=== PATIENT | male | born 1940 | race Caucasian/White ===

== ENCOUNTER 2016-11-16 06:16 | Observation (INO) | payer MEDICARE ==
[~2016-11-16] VITALS: Ht 170.2 cm; Wt 74.9 kg
[~2016-11-16 06:16] MED LIST: CYAN100017 PO; LEVO.15 PO; LISI20 PO; LUTE20TA PO; MECL25 PO; MELO15; PRAV40 PO
[2016-11-16 06:24] VITALS: BP 202/101; PULSE 65; RESP 16; TEMP 98; O2SAT 96
[2016-11-16] MEDS ORDERED: LEVO-86 PO (06:36)
[2016-11-16] MEDS ORDERED: OMEP20TA PO (07:00)
[2016-11-16] MEDS ORDERED: SODIUM CHLOR 0.9% 1000 ML INJ 1,000 ML IV SCH ×2 (07:07→11:30)
[2016-11-16] MEDS ORDERED: LIDOCAINE VISCOUS 2% SOLN 15 ML UDC PO ONE (07:15)
[2016-11-16] MEDS ORDERED: ALUMINUM/MAGNESIUM/SIMETH 30 ML CUP PO ONE (07:15)
[2016-11-16] MEDS ORDERED: ONDANSETRON HCL 4 MG/2 ML VIAL IVP ONE (07:15)
[2016-11-16] MEDS ORDERED: HYDROmorphone HCL PF 2 MG/ML VIAL IVS ONE (07:15)
[2016-11-16 07:18] LABS: AUTOMATED NEUTROPHIL # 11.4 TH/MM3 (1.8-7.7); BASOPHIL % 0.3 % (0.0-2.0); EOSINOPHIL # 0.1 TH/MM3 (0-0.4); EOSINOPHIL % 0.7 % (0.0-4.0); HEMATOCRIT 49.3 % (39.0-51.0); HEMO FLAGS DIFF FINAL; LYMPH % 15.5 % (9.0-44.0); LYMPHOCYTE # 2.2 TH/MM3 (1.0-4.8); MEAN CELL VOLUME 90.5 FL (80.0-100.0); MEAN CORPUSCULAR HEMOGLOBIN 29.3 PG (27.0-34.0); MEAN CORPUSCULAR HGB CONC 32.4 % (32.0-36.0); MONO % 3.8 % (0.0-8.0); NEUT % 79.7 % (16.0-70.0); PLATELET COUNT 246 TH/MM3 (150-450); RED BLOOD COUNT 5.45 MIL/MM3 (4.50-5.90); RED CELL DISTRIBUTION WIDTH 12.6 % (11.6-17.2); WHITE BLOOD COUNT 14.3 TH/MM3 (4.0-11.0)
[2016-11-16] MEDS: SODIUM CHLORIDE 0.9% FLUSH 10 ML FLUSH IV FLUSH PRN ×2 (07:18→11:13)
[2016-11-16 07:23] VITALS: BP 142/82; PULSE 58; RESP 18; O2SAT 97
--- NOTE | 2016-11-16 07:23 | PD ---
HPI Chief Complaint: Abdominal Pain Time Seen by Provider: 07:03 Travel History International Travel<30 days: No Contact w/Intl Traveler<30days: No Traveled to known affect area: No History of Present Illness HPI 75 yo M c/o RUQ pain and epigastric pain since last night. He wonders if the gallbladder is causing the pain. One episode nonbloody vomiting with waves of nausea all night is reported. No fever. + Diaphoresis. Last oral intake was chicken, kale and sweet potatoes. Pt unsure if he passed flatus overnight; typically he does quite a bit. A similar episode occurred previously however resolved spontaneously after several hours. No diarrhea. PFSH Past Medical History Arthritis: Yes Cancer: No Cardiovascular Problems: Yes High Cholesterol: Yes Cerebrovascular Accident: No Diabetes: No Diminished Hearing: No Endocrine: Yes Gastrointestinal Disorders: No Genitourinary: No Headaches: No Immune Disorder: No Implanted Vascular Access Dvce: No Musculoskeletal: Yes Neurologic: Yes Psychiatric: No Reproductive: No Respiratory: No Migraines: No Seizures: No Thyroid Disease: Yes Tetanus Vaccination: Unknown Influenza Vaccination: Yes Past Surgical History Tonsillectomy: Yes Other Surgery: Yes (tonsilectomy) Social History Alcohol Use: Yes (OCCASIONALLY ) Tobacco Use: No Substance Use: No Allergies-Medications (Allergen,Severity, Reaction): Coded Allergies: Codeine (Verified Allergy, Unknown, RASH, 11/16/16) Reported Meds & Prescriptions Reported Meds & Active Scripts Active Reported Omeprazole 20 Mg Tab 20 Mg PO ONCE Synthroid (Levothyroxine Sodium) 137 Mcg Tab 137 Mcg PO DAILY Review of Systems Except as stated in HPI: all other systems reviewed are Neg General / Constitutional: No: Fever Cardiovascular: Positive: Diaphoresis, No: Chest Pain or Discomfort, Palpitations Respiratory: No: Shortness of Breath Gastrointestinal: Positive: Nausea, Vomiting, Abdominal Pain, No: Diarrhea Physical Exam Narrative GENERAL: 75 yo M, WNWD, mild-moderate distress 2/2 pain SKIN: Warm and dry. HEAD: Atraumatic. Normocephalic. EYES: Pupils equal and round. No scleral icterus. No injection or drainage. ENT: No nasal bleeding or discharge. Mucous membranes pink and moist. NECK: Trachea midline. No JVD. CARDIOVASCULAR: Regular rate and rhythm. RESPIRATORY: No accessory muscle use. Clear to auscultation. Breath sounds equal bilaterally. GASTROINTESTINAL:Abdomen mildly distended, soft. + TTP RUQ. MUSCULOSKELETAL: Extremities without clubbing, cyanosis, or edema. No obvious deformities. NEUROLOGICAL: Awake and alert. No obvious cranial nerve deficits. Motor grossly within normal limits. Five out of 5 muscle strength in the arms and legs. Normal speech. PSYCHIATRIC: Appropriate mood and affect; insight and judgment normal. Data Data Last Documented VS Vital Signs Date Time Temp Pulse Resp B/P Pulse Ox O2 Delivery O2 Flow Rate FiO2 11/16/16 11:11 79 18 165/87 97 Room Air 11/16/16 06:24 98.0 VS reviewed Orders Complete Blood Count With Diff (11/16/16 07:07) Comprehensive Metabolic Panel (11/16/16 07:07) Lipase (11/16/16 07:07) Ct Abd/Pel W Iv Contrast(Rout) (11/16/16 07:07) Iv Access Insert/Monitor (11/16/16 07:07) Ecg Monitoring (11/16/16 07:07) Oximetry (11/16/16 07:07) Hydromorphone Pf Inj (Dilaudid Pf Inj) (11/16/16 07:15) Ondansetron Inj (Zofran Inj) (11/16/16 07:15) Sodium Chlor 0.9% 1000 Ml Inj (Ns 1000 M (11/16/16 07:07) Sodium Chloride 0.9% Flush (Ns Flush) (11/16/16 07:15) Al-Mag Hy-Si 40-40-4 Mg/Ml Liq (Mag-Al P (11/16/16 07:15) Lidocaine 2% Viscous (Xylocaine 2% Visco (11/16/16 07:15) Iohexol 350 Inj (Omnipaque 350 Inj) (11/16/16 08:02) Hydromorphone Pf Inj (Dilaudid Pf Inj) (11/16/16 08:30) Pantoprazole Inj (Protonix Inj) (11/16/16 09:45) Us Abdomen Gallbladder (11/16/16 ) Hydromorphone Pf Inj (Dilaudid Pf Inj) (11/16/16 11:00) Piperacil-Tazo 4.5 Gm Premix (Zosyn 4.5 (11/16/16 11:30) Sodium Chlor 0.9% 1000 Ml Inj (Ns 1000 M (11/16/16 11:30) Admit Order (Ed Use Only) (11/16/16 11:51) Labs Laboratory Tests Test 11/16/16 06:40 White Blood Count 14.3 TH/MM3 Red Blood Count 5.45 MIL/MM3 Hemoglobin 16.0 GM/DL Hematocrit 49.3 % Mean Corpuscular Volume 90.5 FL Mean Corpuscular Hemoglobin 29.3 PG Mean Corpuscular Hemoglobin 32.4 % Concent Red Cell Distribution Width 12.6 % Platelet Count 246 TH/MM3 Mean Platelet Volume 9.3 FL Neutrophils (%) (Auto) 79.7 % Lymphocytes (%) (Auto) 15.5 % Monocytes (%) (Auto) 3.8 % Eosinophils (%) (Auto) 0.7 % Basophils (%) (Auto) 0.3 % Neutrophils # (Auto) 11.4 TH/MM3 Lymphocytes # (Auto) 2.2 TH/MM3 Monocytes # (Auto) 0.5 TH/MM3 Eosinophils # (Auto) 0.1 TH/MM3 Basophils # (Auto) 0.0 TH/MM3 CBC Comment DIFF FINAL Differential Comment Sodium Level 137 MEQ/L Potassium Level 5.3 MEQ/L Chloride Level 101 MEQ/L Carbon Dioxide Level 28.5 MEQ/L Anion Gap 8 MEQ/L Blood Urea Nitrogen 10 MG/DL Creatinine 0.90 MG/DL Estimat Glomerular Filtration 83 ML/MIN Rate Random Glucose 139 MG/DL Calcium Level 9.2 MG/DL Total Bilirubin 1.0 MG/DL Aspartate Amino Transf 47 U/L (AST/SGOT) Alanine Aminotransferase 29 U/L (ALT/SGPT) Alkaline Phosphatase 52 U/L Total Protein 7.5 GM/DL Albumin 3.9 GM/DL Lipase 69 U/L [facility] Medical Decision Making Medical Screen Exam Complete: Yes Emergency Medical Condition: Yes Medical Record Reviewed: Yes Differential Diagnosis Constipation, Gastritis, Acute Cholecystitis, Biliary Colic, Pancreatitis, PRESTON , Hepatitis, Bowel Obstruction, Cystitis, Mesenteric Ischemia, AAA, Appendicitis , Renal Stone/Hydronephrosis, GERD, perforated viscous Narrative Course CBC & BMP Diagram 11/16/16 06:40 LFTs normal Lipase 69 Last Impressions Abdomen/Pelvis CT 11/16/16 0707 Signed Impressions: Service Date/Time: Wednesday, November 16, 2016 07:50 - CONCLUSION: 1. Uncomplicated colonic diverticulosis. 2. Distended gallbladder containing sludge. 3. Enlarged prostate. 4. Bilateral pars defects at L5. 5. Degenerative changes and scoliosis of the thoracolumbar spine. 6. Cardiomegaly. 7. Minimal posterior bibasilar atelectasis. Pérez Roland MD 0745: resting comfortably after gi cocktail and 0.5mg hydromorphone 0820: resting comfortably however reports pain returned, 0.5mg hydromorphone ordered again; results of ct discussed, plan for US discussed, pt agreeable with plan, concern for acute cholecystitis 1100: resting comfortably however reports pain returned, 0.5mg hydromorphone ordered again GB SONO: GB calculi with positive US Tomlin's sign 1120: resting comfortably, + TTP RUQ, call to general surgery placed 1145: d/w general surgery; pt confirms last oral intake was 8pm last night 1155: d/w Dr Carranza of general surgery, who will take pt for cholecystectomy this afternoon. pt notified shortly thereafter and verbalized agreement with plan. Diagnosis Primary Impression: Cholecystitis Admitting Information Admitting Physician Requests: Observation James Baca MD Nov 16, 2016 07:23
[2016-11-16 07:26] LABS: CHLORIDE 101 MEQ/L (98-107); POTASSIUM 5.3 MEQ/L (3.5-5.1); SODIUM (NA) 137 MEQ/L (136-145)
[2016-11-16 07:30] LABS: ANION GAP 8 MEQ/L (5-15); BICARBONATE 28.5 MEQ/L (21.0-32.0); BLOOD UREA NITROGEN 10 MG/DL (7-18)
[2016-11-16 07:33] LABS: ALT (GPT) 29 U/L (12-78); AST (GOT) 47 U/L (15-37); GLOMERULAR FILTRATION RATE 83 ML/MIN (>89)
[2016-11-16 07:36] LABS: ALKALINE PHOSPHATASE 52 U/L (45-117)
[2016-11-16] MEDS ORDERED: IOHEXOL 350 MG/ML 10 ML VIAL (for RAD DIAG) IV ONE (08:02)
[2016-11-16] MEDS ORDERED: HYDROmorphone HCL PF 1 MG/ML VIAL IV PUSH ONE ×2 (08:30→11:00)
[2016-11-16 09:13] VITALS: BP 165/89; PULSE 60; RESP 18; O2SAT 96
--- NOTE | 2016-11-16 09:20 | RADRPT ---
EXAM DATE/TIME: 11/16/2016 07:50 [facility] COMPARISON: No previous studies available for comparison. INDICATIONS : Epigastric pain. IV CONTRAST: 95 cc Omnipaque 350 (iohexol) IV ORAL CONTRAST: No oral contrast ingested. RADIATION DOSE: 11.96 CTDIvol (mGy) MEDICAL HISTORY : None SURGICAL HISTORY : None. ENCOUNTER: Initial ACUITY: 1 day PAIN SCALE: 6/10 LOCATION: upper quadrant TECHNIQUE: Volumetric scanning of the abdomen and pelvis was performed. Using automated exposure control and ad justment of the mA and/or kV according to patient size, radiation dose was kept as low as reasonably achievable to obtain optimal diagnostic quality images. DICOM format image data is available electro nically for review and comparison. FINDINGS: LOWER LUNGS: Minimal posterior bibasilar atelectatic changes are noted. Cardiomegaly is noted. LIVER: Homogeneous density without lesion. There is no dilation of the biliary tree. The gallbladder is dis tended and contains some sludge. If there is clinical concern for cholecystitis, a hepatobiliary scan or gallbladder ultrasound would be more sensitive. SPLEEN: Normal size without lesion. PANCREAS: Within normal limits. KIDNEYS: Normal in size and shape. There is no mass, stone or hydronephrosis. ADRENAL GLANDS: Within normal limits. VASCULAR: There is no aortic aneurysm. BOWEL/MESENTERY: Uncomplicated colonic diverticulosis is noted. No acute diverticulitis is noted. The appendix is norm al. ABDOMINAL WALL: Within normal limits. RETROPERITONEUM: There is no lymphadenopathy. BLADDER: No wall thickening or mass. REPRODUCTIVE: The prostate gland is prominent. The seminal vesicles are also prominent bilaterally. INGUINAL: There is no lymphadenopathy or hernia. MUSCULOSKELETAL: Bilateral pars defects are noted at L5. Degenerative changes and scoliosis of the thoracolumbar spine are noted. CONCLUSION: 1. Uncomplicated colonic diverticulosis. 2. Distended gallbladder containing sludge. 3. Enlarged prostate. 4. Bilateral pars defects at L5. 5. Degenerative changes and scoliosis of the thoracolumbar spine. 6. Cardiomegaly. 7. Minimal posterior bibasilar atelectasis. Pérez Roland MD on November 16, 2016 at 9:09 Board Certified Radiologist. This report was verified electronically.
[2016-11-16] MEDS ORDERED: PANTOPRAZOLE SODIUM 40 MG VIAL IV PUSH ONE (09:45)
[2016-11-16 11:11] VITALS: BP 165/87; PULSE 79; RESP 18; O2SAT 97
--- NOTE | 2016-11-16 11:16 | RADRPT ---
EXAM DATE/TIME: 11/16/2016 10:03 [facility] COMPARISON: CT ABDOMEN & PELVIS W CONTRAST, November 16, 2016, 7:50. INDICATIONS : Right upper quandrant pain. MEDICAL HISTORY : Hypercholesterolemia. Thyroid Disease. HX of head trama. Arthritis. SURGICAL HISTORY : Tonsillectomy. ENCOUNTER: Initial ACUITY: 1 day PAIN SCORE: 8/10 LOCATION: Right upper quadrant MEASUREMENTS: LIVER: 18.6 cm length COMMON DUCT: 6 mm RIGHT KIDNEY: 11.4 x 5.1 x 5.5 cm FINDINGS: LIVER: Normal echotexture without focal lesion or ductal dilatation. COMMON DUCT: No intraluminal mass or stone visualized. GALLBLADDER: Gallbladder is distended and contains multiple dependent echogenic stones. No para cholecystic fluid or mural thickening but the patient did exhibit a positive sonographic Tomlin's sign PANCREAS: The visualized portions are within normal limits. RIGHT KIDNEY: No evidence of hydronephrosis, stone, or mass. CONCLUSION: 1. Cholelithiasis with a positive sonographic Tomlin's sign. 2. Liver is slightly prominent but otherwise sonographically intact. The pancreas and right kidney ar e sonographically normal. Melchor Hernandez MD on November 16, 2016 at 11:11 Board Certified Radiologist. This report was verified electronically.
[2016-11-16] MEDS ORDERED: PIPERACIL-TAZO 4.5 GM PREMIX 100 ML IV ONE (11:30)
[2016-11-16] MEDS ORDERED: PROPOFOL 200 MG/20 ML AMP IV ONE (12:00)
[2016-11-16] MEDS ORDERED: ONDANSETRON HCL 4 MG/2 ML VIAL IV PUSH ONE (12:00)
[2016-11-16] MEDS ORDERED: BUPIVACAINE/EPINEPHRINE 0.25% PF 30 ML VIAL ONE (12:44)
[2016-11-16 13:35] VITALS: BP 155/79
[2016-11-16] MEDS ORDERED: INSULIN HUMAN REGULAR 1,000 UNITS/10 ML VIAL SQ PRN (13:45)
[2016-11-16] MEDS ORDERED: METOPROLOL TARTRATE 25 MG TAB PO PRN (13:45)
[2016-11-16] MEDS ORDERED: POVIDONE IODINE 5% (ANTISEPSIS KIT) 4 APPLICATIONS EACH NARE PRN (13:45)
[2016-11-16] MEDS ORDERED: LACTATED RINGER'S 1000 ML IV PRN (13:45)
[2016-11-16] MEDS ORDERED: SODIUM CHLORID 0.9% 500 ML IV PRN (13:45)
[2016-11-16] MEDS ORDERED: CHLORHEXIDINE GLUCONATE 2 % 1 PACK (2 CLOTHS) TOPICAL PRN (13:45)
[2016-11-16] MEDS ORDERED: MIDAZOLAM HCL 2 MG/2 ML VIAL ONE (13:53)
--- NOTE | 2016-11-16 14:09 | MH ---
cc: MIGUEL ÁNGEL SARABIA MD DATE OF ADMISSION: 11/16/2016 CHIEF COMPLAINT Abdominal pain. HISTORY OF PRESENT ILLNESS This is a 75-year-old male who presented to the emergency department this morning with complaints of abdominal pain. He states that he developed severe epigastric abdominal pain beginning about 8:00 p.m. last night after a dinner of chicken, kale and sweet potato. This was associated with one episode of non-bloody emesis. The pain persisted throughout the night and therefore he presented to the emergency department. In the last few hours the pain has progressed more from the epigastrium to the right upper abdomen and even towards the right flank. He underwent an evaluation in the emergency department and was noted to have a positive Tomlin's sign, leukocytosis of 14,000, and a gallbladder ultrasound revealing cholelithiasis and a positive sonographic Tomlin's sign. CT of the abdomen and pelvis showed a distended gallbladder with sludge. The patient has never had any abdominal surgeries. PAST MEDICAL HISTORY Hypothyroidism. PAST SURGICAL HISTORY 1. Tonsillectomy. 2. Circumcision. MEDICATIONS Home medication is Synthroid. ALLERGIES CODEINE. SOCIAL HISTORY Occasional alcohol use. No tobacco or drug use. FAMILY HISTORY Noncontributory. REVIEW OF SYSTEMS A 10-point review of systems is negative except as mentioned in the HPI. PHYSICAL EXAMINATION GENERAL: A pleasant 75-year-old male not in distress. VITAL SIGNS: Temperature this morning was 98, heart rate 79, respirations 18, blood pressure 165/87. HEAD: Normocephalic, atraumatic. EYES: Pupils equal, round and reactive to light bilaterally. LUNGS: Clear to auscultation bilaterally with no wheezing or rhonchi. CARDIOVASCULAR: Regular rate and rhythm. ABDOMEN: Soft. Nondistended. Minimal tenderness in the epigastrium. He does have moderate to severe tenderness in the right upper quadrant towards the flank in the subcostal area. EXTREMITIES: No cyanosis or edema. LABORATORY White blood count is 14,000. LFTs are normal except for mild elevation of AST at 47. ASSESSMENT AND PLAN A 75-year-old male with sudden onset of epigastric and right upper quadrant pain and an evaluation consistent with acute cholecystitis. Plan is to proceed to the operating room for laparoscopic/possible open cholecystectomy. I discussed the details, risks and benefits with the patient and he desires to proceed. MD KINJAL Ryan/RODRI /1:48 PM /2:04 PM
[2016-11-16] MEDS: LACTATED RINGER'S 1000 ML INJ 1,000 ML IV SCH (15:33)
[2016-11-16] MEDS ORDERED: LABETALOL HCL 100 MG/20 ML VIAL ONE (15:44)
[2016-11-16] MEDS ORDERED: NALOXONE HCL 0.4 MG/ML AMP IV PRN (15:45)
[2016-11-16] MEDS ORDERED: oxyCODONE/ACETAMINOPHEN 10 MG/325 MG TAB PO PRN (15:45)
[2016-11-16] MEDS ORDERED: Post-op Orders (for Pharmacy) MISC XX ONE (15:45)
[2016-11-16] MEDS ORDERED: MORPHINE SULFATE 4 MG/ML INJ IV PRN (15:45)
[2016-11-16] MEDS ORDERED: oxyCODONE/ACETAMINOPHEN 5 MG/325 MG TAB PO PRN (15:45)
[2016-11-16] MEDS ORDERED: SODIUM CHLORIDE 0.9% FLUSH 10 ML FLUSH IV FLUSH PRN (15:45)
[2016-11-16] MEDS ORDERED: ONDANSETRON HCL 4 MG/2 ML VIAL IV PRN (15:45)
[2016-11-16] MEDS ORDERED: diphenhydrAMINE HCL 25 MG CAP PO PRN (15:45)
[2016-11-16] MEDS: metroNIDAZOLE 500 MG INJ 100 ML IV SCH (17:00)
[2016-11-16 20:00] VITALS: BP 130/72; PULSE 68; RESP 18; TEMP 98; O2SAT 95
--- NOTE | 2016-11-16 20:53 | PD.OP ---
cc: Mark Carranza MD Operative Report Date of Surgery: Nov 16, 2016 Preoperative Diagnosis: (1) Cholecystitis Postoperative Diagnosis: (1) Acute cholecystitis Procedure: Laparoscopic cholecystectomy Anesthesia: [id number] Surgeon: Mark Carranza Barrel Cap Setter(s): Tavares Operation and Findings: Complications: None apparent EBL: 10 cc Operative findings: The gallbladder was inflamed and distended with partially gangrenous wall. Procedure in detail: The patient was taken to the operating room and placed in the supine position. General endotracheal anesthesia was induced. The abdomen was prepped and draped in usual sterile fashion and a surgical timeout was performed to verify correct patient procedure and site. Appropriate perioperative antibiotics were administered. Local anesthetic was injected in the skin and subcutaneous tissue superior to the umbilicus and a 5 mm incision performed. The abdomen was entered using the Optiview 5 mm trocar with direct laparoscopic visualization. The abdomen was then insufflated to 15 mmHg with CO2 gas which the patient tolerated well. Next a 12 mm port was placed in the epigastrium and two 5 mm ports in the right upper quadrant and right lateral abdomen. The patient was placed in reverse Trendelenburg position and turned slightly to the left. Attention was turned to the right upper quadrant and the dome of the gallbladder was grasped and retracted cephalad. The gallbladder was distended and inflamed and the wall was partially gangrenous. The gallbladder was decompressed with about 40 cc of bile removed using the aspiration needle. The infundibulum was retracted laterally to expose Calot's triangle. Blunt dissection and judicious use of electrocautery was used to expose the cystic duct and the cystic artery directly entering the gallbladder. Two clips were placed proximally on each of these structures and one distally and they were transected. The gallbladder was then removed from the liver bed using electrocautery. Hemostasis was achieved. The right upper quadrant was copiously irrigated. The gallbladder was then removed from the abdomen using an Endo Catch bag. The clips were in place on the cystic duct and cystic artery stumps with no bleeding or bile leakage. At this point, the abdomen was allowed to desufflate and trochars were removed. The fascia at the 12 mm port site was closed with 0 Vicryl suture. Skin was closed with subcuticular 4-0 Monocryl as well as Dermabond. The patient tolerated the procedure well and was extubated and taken to PACU in stable condition. All sponge and instrument counts were correct. Mark Carranza MD Nov 16, 2016 20:53
[2016-11-16] MEDS: SODIUM CHLORIDE 0.9% FLUSH 10 ML FLUSH IV FLUSH SCH (21:20)
[2016-11-17] VITALS: BP 123/71; PULSE 65; RESP 16; TEMP 97.9; O2SAT 95
[2016-11-17] MEDS: metroNIDAZOLE 500 MG INJ 100 ML IV SCH ×2 (00:31→08:11)
[2016-11-17] MEDS: LACTATED RINGER'S 1000 ML INJ 1,000 ML IV SCH (01:33)
--- NOTE | 2016-11-17 07:09 | HHI.PR ---
Subjective Subjective Notes Tolerated diet last night. Did not need any pain meds. Feels completely better from preop. Objective Vitals/I&O Vital Signs Date Time Temp Pulse Resp B/P Pulse Ox O2 Delivery O2 Flow Rate FiO2 11/17/16 00:00 97.9 65 16 123/71 95 11/16/16 11:11 Room Air Narrative Exam NAD Abd: soft, inc c/d/i A/P Assessment and Plan 75 yo M POD 1 s/p lap yesi for acute cholecystitis Stable. D/c home. Regular diet. Activity- ok to shower, avoid heavy lifting. F/ u with me two weeks. Rx for percocet. Mark Carranza MD Nov 17, 2016 07:09
[2016-11-17] MEDS ORDERED: OXYC1TAB63 PO (07:11)
[2016-11-17 08:00] VITALS: BP 128/81; PULSE 57; RESP 18; TEMP 98.5; O2SAT 97
[2016-11-17] MEDS: SODIUM CHLORIDE 0.9% FLUSH 10 ML FLUSH IV FLUSH SCH (09:00)
== END 2016-11-17 11:20 | disposition home or self-care (01) ==
LOC: PHED 06:16 → PHEDA 11:52 → PH3B 19:18
PROVIDERS: ADMIT Surgery; ATTEND Surgery
PROC: 0FT44ZZ Resection of Gallbladder, Percutaneous Endoscopic Approach (ICD-10-PCS; principal; 2016-11-16 14:29)
DX: K81.0 Acute cholecystitis (principal); K80.12 Calculus of gallbladder with acute and chronic cholecystitis without obstruction; E03.9 Hypothyroidism, unspecified; E78.00 Pure hypercholesterolemia, unspecified; M19.90 Unspecified osteoarthritis, unspecified site; Z79.899 Other long term (current) drug therapy
CPT/HCPCS: 00790; 47562; 74177; 76705; 80053; 83690; 85025; 88304; 94150; 96361; 96374; 96375; 96376; 99285; C9113; G0378; J0690; J1170; J2250; J2405; J2543; J3010; J7030; Q9967

== ENCOUNTER 2016-11-21 20:54 | Inpatient (IN) | payer MEDICARE ==
[~2016-11-21] VITALS: Ht 170.2 cm; Wt 74.0 kg
[~2016-11-21 20:54] MED LIST changes: -CYAN100017 PO; +LEVO-86 PO; -LEVO.15 PO; -LISI20 PO; -LUTE20TA PO; -MECL25 PO; -MELO15; +OMEP20TA PO; +OXYC1TAB63 PO; -PRAV40 PO
[2016-11-21 21:29] VITALS: BP 162/85; PULSE 65; RESP 18; TEMP 98.4; O2SAT 96
--- NOTE | 2016-11-21 22:09 | PD ---
HPI Chief Complaint: Abdominal Pain Time Seen by Provider: 22:05 Travel History International Travel<30 days: No Contact w/Intl Traveler<30days: No Traveled to known affect area: No History of Present Illness HPI 75-year-old male with history of cholecystectomy done on Tuesday by Dr. Carranza, released 2 days ago, presents back to the ER today because he states he's been having increased abdominal pain today with nausea and vomiting. He states he had eaten a hamburger today before it happened. He states that he was released without pain medications. He denies any fevers or any other issues. Modifying Factors: None Associated Signs & Symptoms: Increased upper abdominal pain with nausea and vomiting Risk Factors: Recent gallbladder surgery PFSH Past Medical History Arthritis: Yes Blood Disorders: No Anxiety: No Depression: No Cancer: No Cardiovascular Problems: Yes High Cholesterol: Yes Cerebrovascular Accident: No Diabetes: No Diminished Hearing: No Endocrine: Yes Gastrointestinal Disorders: No Genitourinary: No Headaches: No Immune Disorder: No Implanted Vascular Access Dvce: No Musculoskeletal: Yes (BACK PAIN) Neurologic: Yes Psychiatric: No Reproductive: No Respiratory: No Migraines: No Seizures: No Thyroid Disease: Yes ?: Not Past Surgical History Tonsillectomy: Yes Other Surgery: Yes (tonsilectomy) Social History Alcohol Use: Yes (OCCASIONALLY ) Tobacco Use: No Substance Use: No Allergies-Medications (Allergen,Severity, Reaction): Coded Allergies: Codeine (Verified Allergy, Unknown, RASH, 11/21/16) Reported Meds & Prescriptions Reported Meds & Active Scripts Active Reported Synthroid (Levothyroxine Sodium) 137 Mcg Tab 137 Mcg PO DAILY Review of Systems Except as stated in HPI: all other systems reviewed are Neg Physical Exam Narrative GENERAL: Well-developed elderly white male patient currently in mild distress. Awake and oriented 3. SKIN: Focused skin assessment warm/dry. HEAD: Atraumatic. Normocephalic. EYES: Pupils equal and round. No scleral icterus. No injection or drainage. ENT: No nasal bleeding or discharge. Mucous membranes pink and moist. NECK: Trachea midline. No JVD. CARDIOVASCULAR: Regular rate and rhythm. No murmur appreciated. RESPIRATORY: No accessory muscle use. Clear to auscultation. Breath sounds equal bilaterally. GASTROINTESTINAL: Abdomen soft, epigastric and right upper quadrant tenderness without guarding or rebound, nondistended. Hepatic and splenic margins not palpable. Incisions appear to be clean, dry, intact. MUSCULOSKELETAL: No obvious deformities. No clubbing. No cyanosis. No edema. NEUROLOGICAL: Awake and alert. No obvious cranial nerve deficits. Motor grossly within normal limits. Normal speech. PSYCHIATRIC: Appropriate mood and affect; insight and judgment normal. Data Data Last Documented VS Vital Signs Date Time Temp Pulse Resp B/P Pulse Ox O2 Delivery O2 Flow Rate FiO2 11/21/16 21:29 98.4 65 18 162/85 96 Orders Complete Blood Count With Diff (11/21/16 22:05) Comprehensive Metabolic Panel (11/21/16 22:05) Lipase (11/21/16 22:05) Urinalysis - C+S If Indicated (11/21/16 22:05) Ct Abd/Pel W Iv Contrast(Rout) (11/21/16 22:05) Iv Access Insert/Monitor (11/21/16 22:05) Ecg Monitoring (11/21/16 22:05) Oximetry (11/21/16 22:05) Morphine Inj (Morphine Inj) (11/21/16 22:15) Ondansetron Inj (Zofran Inj) (11/21/16 22:15) Sodium Chloride 0.9% Flush (Ns Flush) (11/21/16 22:15) Sodium Chlorid 0.9% 500 Ml Inj (Ns 500 M (11/21/16 22:15) Iohexol 350 Inj (Omnipaque 350 Inj) (11/21/16 23:37) Admit Order (Ed Use Only) (11/22/16 00:20) Labs Laboratory Tests Test 11/21/16 22:40 White Blood Count 12.9 TH/MM3 Red Blood Count 5.11 MIL/MM3 Hemoglobin 15.2 GM/DL Hematocrit 46.1 % Mean Corpuscular Volume 90.2 FL Mean Corpuscular Hemoglobin 29.8 PG Mean Corpuscular Hemoglobin 33.0 % Concent Red Cell Distribution Width 12.3 % Platelet Count 291 TH/MM3 Mean Platelet Volume 8.5 FL Neutrophils (%) (Auto) 87.6 % Lymphocytes (%) (Auto) 6.0 % Monocytes (%) (Auto) 3.7 % Eosinophils (%) (Auto) 0.2 % Basophils (%) (Auto) 2.5 % Neutrophils # (Auto) 11.3 TH/MM3 Lymphocytes # (Auto) 0.8 TH/MM3 Monocytes # (Auto) 0.5 TH/MM3 Eosinophils # (Auto) 0.0 TH/MM3 Basophils # (Auto) 0.3 TH/MM3 CBC Comment DIFF FINAL Differential Comment Urine Color TAINA Urine Turbidity CLEAR Urine pH 5.5 Urine Specific [place] 1.017 Urine Protein NEG mg/dL Urine Glucose (UA) 250 mg/dL Urine Ketones NEG mg/dL Urine Occult Blood TRACE Urine Nitrite NEG Urine Bilirubin NEG Urine Leukocyte Esterase NEG Urine RBC 0-3 /hpf Urine WBC 0-2 /hpf Urine Squamous Epithelial 0-5 /hpf Cells Microscopic Urinalysis Comment CULT NOT INDICATED Sodium Level 140 MEQ/L Potassium Level 4.0 MEQ/L Chloride Level 103 MEQ/L Carbon Dioxide Level 29.6 MEQ/L Anion Gap 7 MEQ/L Blood Urea Nitrogen 10 MG/DL Creatinine 0.89 MG/DL Estimat Glomerular Filtration 84 ML/MIN Rate Random Glucose 137 MG/DL Calcium Level 9.4 MG/DL Total Bilirubin 2.6 MG/DL Aspartate Amino Transf 949 U/L (AST/SGOT) Alanine Aminotransferase 633 U/L (ALT/SGPT) Alkaline Phosphatase 189 U/L Total Protein 7.5 GM/DL Albumin 3.7 GM/DL Lipase 00834 U/L [facility] Medical Decision Making Medical Screen Exam Complete: Yes Emergency Medical Condition: Yes Medical Record Reviewed: Yes Interpretation(s) Laboratory Tests Test 11/21/16 22:40 White Blood Count 12.9 TH/MM3 (4.0-11.0) Neutrophils (%) (Auto) 87.6 % (16.0-70.0) Lymphocytes (%) (Auto) 6.0 % (9.0-44.0) Basophils (%) (Auto) 2.5 % (0.0-2.0) Neutrophils # (Auto) 11.3 TH/MM3 (1.8-7.7) Lymphocytes # (Auto) 0.8 TH/MM3 (1.0-4.8) Basophils # (Auto) 0.3 TH/MM3 (0-0.2) Urine Color TAINA (YELLW/STRAW) Urine Glucose (UA) 250 mg/dL (NEG) Urine Occult Blood TRACE (NEG) Estimat Glomerular Filtration 84 ML/MIN (>89) Rate Random Glucose 137 MG/DL (74-106) Total Bilirubin 2.6 MG/DL (0.2-1.0) Aspartate Amino Transf 949 U/L (15-37) (AST/SGOT) Alanine Aminotransferase 633 U/L (12-78) (ALT/SGPT) Alkaline Phosphatase 189 U/L (45-117) Lipase 97657 U/L (73-393) Last 24 hours Impressions Abdomen/Pelvis CT 11/21/16 2205 Signed Impressions: Service Date/Time: Monday, November 21, 2016 23:26 - CONCLUSION: 1. Status post interval cholecystectomy with mild increased density in the garett hepatis most characteristic of postsurgical change. 2. Mild inflammatory change and fluid surrounding the second and third portions of the duodenum which is nonspecific but likely secondary to postsurgical change as well. 3. Moderate diverticulosis. 4. Mild hepatic steatosis. Sharad Crow MD Differential Diagnosis Abdominal pain, nausea and vomitingpostop pain versus other acute intra- abdominal processes Narrative Course Lab work shows significant elevation of hepatic enzymes and lipase. CAT scan did not show any signs of other acute processes. At this point, case was discussed with Dr. Carranza who states that it is likely that the patient has a retained stone and that he will need further treatment and ERCP. He would like me to admit the patient to his service with transferred to the main hospital for further treatment. Diagnosis Primary Impression: Acute pancreatitis due to calculus of common bile duct Additional Impression: Biliary obstruction Admitting Information Admitting Physician Requests: Admit Mildred Downing MD Nov 21, 2016 22:08
[2016-11-21] MEDS ORDERED: SODIUM CHLORIDE 0.9% FLUSH 10 ML FLUSH IV FLUSH PRN (22:15)
[2016-11-21] MEDS ORDERED: SODIUM CHLORID 0.9% 500 ML INJ 500 ML IV ONE (22:15)
[2016-11-21] MEDS ORDERED: ONDANSETRON HCL 4 MG/2 ML VIAL IVP ONE (22:15)
[2016-11-21] MEDS ORDERED: MORPHINE SULFATE 4 MG/ML INJ IV PUSH ONE (22:15)
[2016-11-21 23:03] LABS: AUTOMATED NEUTROPHIL # 11.3 TH/MM3 (1.8-7.7); BASOPHIL # 0.3 TH/MM3 (0-0.2); BASOPHIL % 2.5 % (0.0-2.0); EOSINOPHIL % 0.2 % (0.0-4.0); HEMATOCRIT 46.1 % (39.0-51.0); LYMPHOCYTE # 0.8 TH/MM3 (1.0-4.8); MEAN CELL VOLUME 90.2 FL (80.0-100.0); MEAN CORPUSCULAR HEMOGLOBIN 29.8 PG (27.0-34.0); MONO % 3.7 % (0.0-8.0); NEUT % 87.6 % (16.0-70.0); PLATELET COUNT 291 TH/MM3 (150-450); RED BLOOD COUNT 5.11 MIL/MM3 (4.50-5.90); RED CELL DISTRIBUTION WIDTH 12.3 % (11.6-17.2); WHITE BLOOD COUNT 12.9 TH/MM3 (4.0-11.0)
[2016-11-21 23:04] LABS: BLOOD, URINE TRACE (NEG); GLUCOSE,URINE 250 mg/dL (NEG); HEMO FLAGS DIFF FINAL; KETONE, URINE NEG (NEG); NITRITE,URINE NEG (NEG); PH, URINE 5.5 (5.0-8.5)
[2016-11-21 23:10] LABS: URINE COLOR AMBER (YELLW/STRAW)
[2016-11-21 23:13] LABS: RBC, URINE 0-3 /hpf (0-3); SQUAMOUS EPITHELIAL CELL URINE 0-5 /hpf (0-5); WBC, URINE 0-2 /hpf (0-5)
[2016-11-21 23:14] LABS: COMMENT (UR) CULT NOT INDICATED; CULTURE IF INDICATED CULT NOT INDICATED
[2016-11-21 23:19] LABS: CHLORIDE 103 MEQ/L (98-107); SODIUM (NA) 140 MEQ/L (136-145)
[2016-11-21 23:22] LABS: ANION GAP 7 MEQ/L (5-15); BICARBONATE 29.6 MEQ/L (21.0-32.0)
[2016-11-21 23:23] LABS: BLOOD UREA NITROGEN 10 MG/DL (7-18)
[2016-11-21 23:25] LABS: ALT (GPT) 633 U/L (12-78); AST (GOT) 949 U/L (15-37); GLOMERULAR FILTRATION RATE 84 ML/MIN (>89)
[2016-11-21 23:27] LABS: TOTAL BILIRUBIN ADULT 2.6 MG/DL (0.2-1.0)
[2016-11-21 23:28] LABS: ALKALINE PHOSPHATASE 189 U/L (45-117)
[2016-11-21 23:30] VITALS: BP 138/82; PULSE 74; RESP 16; O2SAT 100
[2016-11-21] MEDS ORDERED: IOHEXOL 350 MG/ML 10 ML VIAL (for RAD DIAG) IV ONE (23:37)
--- NOTE | 2016-11-21 23:54 | RADRPT ---
EXAM DATE/TIME: 11/21/2016 23:26 [facility] COMPARISON: CT ABDOMEN & PELVIS W CONTRAST, November 16, 2016, 7:50. INDICATIONS : Abdominal pain post cholecystectomy. IV CONTRAST: 100 cc Omnipaque 350 (iohexol) IV ORAL CONTRAST: No oral contrast ingested. RADIATION DOSE: 10.19 CTDIvol (mGy) MEDICAL HISTORY : None SURGICAL HISTORY : Cholecystectomy. ENCOUNTER: Initial ACUITY: 4 - 6 days PAIN SCALE: 8/10 LOCATION: Bilateral upper quadrant TECHNIQUE: Volumetric scanning of the abdomen and pelvis was performed. Using automated exposure control and ad justment of the mA and/or kV according to patient size, radiation dose was kept as low as reasonably achievable to obtain optimal diagnostic quality images. DICOM format image data is available electro nically for review and comparison. FINDINGS: LOWER LUNGS: The visualized lower lungs are clear. LIVER: Homogeneous density without lesion. There is no dilation of the biliary tree. There is mild hepatic steatosis again noted. The patient is status post interval cholecystectomy with surgical clips in the garett hepatis. There is mild increased density in this region and surrounding the second and third p ortions of the duodenum. There is no drainable fluid collection. SPLEEN: Normal size without lesion. PANCREAS: Within normal limits. KIDNEYS: Normal in size and shape. There is no mass, stone or hydronephrosis. ADRENAL GLANDS: Within normal limits. VASCULAR: There is no aortic aneurysm. BOWEL/MESENTERY: The stomach, small bowel, and colon demonstrate no acute abnormality. Multiple diverticulum are again noted greatest in the sigmoid colon. There is mild inflammatory change and fluid surrounding the sec ond and third portions of the duodenum. There is no free intraperitoneal air or fluid. ABDOMINAL WALL: Within normal limits. RETROPERITONEUM: There is no lymphadenopathy. BLADDER: No wall thickening or mass. REPRODUCTIVE: Within normal limits. INGUINAL: There is no lymphadenopathy or hernia. MUSCULOSKELETAL: Within normal limits for patient age. CONCLUSION: 1. Status post interval cholecystectomy with mild increased density in the garett hepatis most charact eristic of postsurgical change. 2. Mild inflammatory change and fluid surrounding the second and third portions of the duodenum which is nonspecific but likely secondary to postsurgical change as well. 3. Moderate diverticulosis. 4. Mild hepatic steatosis. Sharad Crow MD on November 21, 2016 at 23:47 Board Certified Radiologist. This report was verified electronically.
[2016-11-22] MEDS: SODIUM CHLOR 0.9% 1000 ML INJ 1,000 ML IV SCH ×3 (00:20→16:51)
[2016-11-22] MEDS ORDERED: SODIUM CHLORIDE 0.9% FLUSH 10 ML FLUSH IV FLUSH PRN (00:30)
[2016-11-22] MEDS: PIPERACIL-TAZO 4.5 GM PREMIX 100 ML IV SCH ×5 (00:47→23:55)
[2016-11-22] MEDS: ONDANSETRON HCL 4 MG/2 ML VIAL IV PRN ×2 (00:47→08:00)
[2016-11-22] MEDS: SODIUM CHLORIDE 0.9% FLUSH 10 ML FLUSH IV FLUSH SCH ×2 (00:48→20:45)
[2016-11-22] MEDS: HYDROmorphone HCL PF 1 MG/ML VIAL IV PUSH PRN ×7 (00:48→23:53)
[2016-11-22 01:02] VITALS: BP 140/78; PULSE 79; RESP 16
[2016-11-22 02:28] VITALS: BP 151/77; PULSE 59; RESP 18; TEMP 96.2; O2SAT 96
[2016-11-22 06:56] LABS: AUTOMATED NEUTROPHIL # 6.8 TH/MM3 (1.8-7.7); BASOPHIL % 0.3 % (0.0-2.0); EOSINOPHIL # 0.1 TH/MM3 (0-0.4); EOSINOPHIL % 0.7 % (0.0-4.0); HEMATOCRIT 42.1 % (39.0-51.0); HEMO FLAGS DIFF FINAL; LYMPH % 13.1 % (9.0-44.0); LYMPHOCYTE # 1.1 TH/MM3 (1.0-4.8); MEAN CELL VOLUME 89.7 FL (80.0-100.0); MEAN CORPUSCULAR HEMOGLOBIN 30.8 PG (27.0-34.0); MEAN CORPUSCULAR HGB CONC 34.3 % (32.0-36.0); MONO % 6.3 % (0.0-8.0); NEUT % 79.6 % (16.0-70.0); PLATELET COUNT 243 TH/MM3 (150-450); RED CELL DISTRIBUTION WIDTH 12.9 % (11.6-17.2); WHITE BLOOD COUNT 8.5 TH/MM3 (4.0-11.0)
[2016-11-22 07:20] LABS: ALKALINE PHOSPHATASE 161 U/L (45-117); ALT (GPT) 526 U/L (12-78); TOTAL BILIRUBIN ADULT 1.2 MG/DL (0.2-1.0)
[2016-11-22 07:21] LABS: ANION GAP 10 MEQ/L (5-15); AST (GOT) 540 U/L (15-37); BICARBONATE 25.1 MEQ/L (21.0-32.0); BLOOD UREA NITROGEN 9 MG/DL (7-18); CHLORIDE 106 MEQ/L (98-107); GLOMERULAR FILTRATION RATE 88 ML/MIN (>89); POTASSIUM 3.9 MEQ/L (3.5-5.1); SODIUM (NA) 141 MEQ/L (136-145)
[2016-11-22 08:00] VITALS: BP 151/77; PULSE 55; RESP 16; TEMP 96.5; O2SAT 94
--- NOTE | 2016-11-22 09:42 | PD.CONS ---
HPI History of Present Illness This is a 75 year old male who was recently hospitalized for acute cholecystitis and underwent a laparoscopic cholecystectomy on 11/16/16. His LFTs at that time were T. Bilirubin 1.0, AST 47, ALT 29, Alk Phosph 52. He reports that he was doing well postoperatively and did not even require pain medicine until yesterday. Yesterday morning, he got up and had some cereal with an apple and almost immediately started having bloating, mid abdominal pain that he describes as gas pain, radiating to his back. He felt as if he moved his bowels, he would feel better. He tried to move his bowels, but vomited undigested food instead. He then did move his bowels and reports that he has not had any issues with constipation prior to that. He took an oxycodone that he was given after his surgery and reports that he felt much better and was able to go out and about with his shopping. After 4-5 hours, the pain returned but was more severe. His symptoms were aggravated by po intake. He denies any jaundice, fever, or chills. He came to the ER and was noted to have elevated LFTs at T. Bili 2.6, AST 949, ALT 633, Alk Phosph 161, Lipase 15,347. Abdomen/Pelvis CT (11/21/16)----> 1. Status post interval cholecystectomy with mild increased density in the garett hepatis most characteristic of postsurgical change. 2. Mild inflammatory change and fluid surrounding the second and third portions of the duodenum which is nonspecific but likely secondary to postsurgical change as well. 3. Moderate diverticulosis. 4. Mild hepatic steatosis. He was admitted for further evaluation and treatment and an MRCP has been ordered and is pending. His LFTs this morning have improved with T. Bili 1.2, AST 540, ALT 526, Alk Phosph 161, Lipase 6104, but he continues to have mid abdominal pressure-like pain and bloating similar to his previous gallbladder attack. He denies any prior episodes of pancreatitis. He does drink 3 alcoholic beverages per day. ( Carly Estevez) PFSH Past Medical History Hypothyroidism Hyperlipidemia Past Surgical History Tonsillectomy Cholecystectomy (Carly Estevez) Coded Allergies: Codeine (Verified Allergy, Unknown, RASH, 11/21/16) Medications Allergies Coded Allergies Type Severity Reaction Last Updated Verified Codeine Allergy Unknown RASH 11/21/16 Yes Active Scripts Medications Dose Route/Sig Days Date Category Synthroid (Levothyroxine Sodium) 137 Mcg Tab 137 Mcg PO DAILY 11/16/16 Reported Family History Father was killed in an accident- healthy otherwise. Mother age 77 from [place], CVA. Social History No tobacco. Drinks 3 alcoholic beverages daily. No illicit drug use. (Carly Estevez) Review of Systems Constitutional: DENIES: Fatigue, Fever, Weight loss, Chills Respiratory: DENIES: Cough Gastrointestinal: COMPLAINS OF: Abdominal pain, Nausea, Vomiting, Swelling of Abdomen, DENIES: Black stools, Bloody stools, Constipation, Diarrhea, Heartburn Musculoskeletal: COMPLAINS OF: Back pain Integumentary: DENIES: Pruritus, Jaundice Hematologic/lymphatic: DENIES: Bruising Neurologic: DENIES: Headache Psychiatric: DENIES: Confusion (Carly Estevez) GI Exam Vitals I&O Vital Signs Date Time Temp Pulse Resp B/P Pulse Ox O2 Delivery O2 Flow Rate FiO2 11/22/16 08:00 96.5 55 16 151/77 94 11/22/16 02:28 96.2 59 18 151/77 96 11/22/16 01:02 79 16 140/78 Room Air 11/21/16 23:30 74 16 138/82 100 Room Air 11/21/16 21:29 98.4 65 18 162/85 96 I/O 11/21/16 11/21/16 11/21/16 11/22/16 11/22/16 11/22/16 07:00 15:00 23:00 07:00 15:00 23:00 Intake Total 338 ml Balance 338 ml Intake IV Total 338 ml # Voids 1 Imaging Last Impressions Abdomen/Pelvis CT 11/21/16 4480 Signed Impressions: Service Date/Time: Monday, November 21, 2016 23:26 - CONCLUSION: 1. Status post interval cholecystectomy with mild increased density in the garett hepatis most characteristic of postsurgical change. 2. Mild inflammatory change and fluid surrounding the second and third portions of the duodenum which is nonspecific but likely secondary to postsurgical change as well. 3. Moderate diverticulosis. 4. Mild hepatic steatosis. Sharad Crow MD Laboratory Test 11/21/16 11/22/16 22:40 06:20 White Blood Count 12.9 TH/MM3 8.5 TH/MM3 Red Blood Count 5.11 MIL/MM3 4.70 MIL/MM3 Hemoglobin 15.2 GM/DL 14.5 GM/DL Hematocrit 46.1 % 42.1 % Mean Corpuscular Volume 90.2 FL 89.7 FL Mean Corpuscular Hemoglobin 29.8 PG 30.8 PG Mean Corpuscular Hemoglobin 33.0 % 34.3 % Concent Red Cell Distribution Width 12.3 % 12.9 % Platelet Count 291 TH/MM3 243 TH/MM3 Mean Platelet Volume 8.5 FL 8.6 FL Neutrophils (%) (Auto) 87.6 % 79.6 % Lymphocytes (%) (Auto) 6.0 % 13.1 % Monocytes (%) (Auto) 3.7 % 6.3 % Eosinophils (%) (Auto) 0.2 % 0.7 % Basophils (%) (Auto) 2.5 % 0.3 % Neutrophils # (Auto) 11.3 TH/MM3 6.8 TH/MM3 Lymphocytes # (Auto) 0.8 TH/MM3 1.1 TH/MM3 Monocytes # (Auto) 0.5 TH/MM3 0.5 TH/MM3 Eosinophils # (Auto) 0.0 TH/MM3 0.1 TH/MM3 Basophils # (Auto) 0.3 TH/MM3 0.0 TH/MM3 CBC Comment DIFF FINAL DIFF FINAL Differential Comment Urine Color TAINA Urine Turbidity CLEAR Urine pH 5.5 Urine Specific [place] 1.017 Urine Protein NEG mg/dL Urine Glucose (UA) 250 mg/dL Urine Ketones NEG mg/dL Urine Occult Blood TRACE Urine Nitrite NEG Urine Bilirubin NEG Urine Leukocyte Esterase NEG Urine RBC 0-3 /hpf Urine WBC 0-2 /hpf Urine Squamous Epithelial 0-5 /hpf Cells Microscopic Urinalysis Comment CULT NOT INDICATED Sodium Level 140 MEQ/L 141 MEQ/L Potassium Level 4.0 MEQ/L 3.9 MEQ/L Chloride Level 103 MEQ/L 106 MEQ/L Carbon Dioxide Level 29.6 MEQ/L 25.1 MEQ/L Anion Gap 7 MEQ/L 10 MEQ/L Blood Urea Nitrogen 10 MG/DL 9 MG/DL Creatinine 0.89 MG/DL 0.85 MG/DL Estimat Glomerular Filtration 84 ML/MIN 88 ML/MIN Rate Random Glucose 137 MG/DL 120 MG/DL Calcium Level 9.4 MG/DL 8.3 MG/DL Total Bilirubin 2.6 MG/DL 1.2 MG/DL Aspartate Amino Transf 949 U/L 540 U/L (AST/SGOT) Alanine Aminotransferase 633 U/L 526 U/L (ALT/SGPT) Alkaline Phosphatase 189 U/L 161 U/L Total Protein 7.5 GM/DL 6.5 GM/DL Albumin 3.7 GM/DL 3.2 GM/DL Lipase 83887 U/L 6104 U/L Physical Examination HEENT: Normocephalic; atraumatic; no jaundice. CHEST: CTA CARDIAC: RRR. ABDOMEN: Soft,mildly distended, mild diffuse tenderness; no hepatosplenomegaly ; bowel sounds are present in all four quadrants. EXTREMITIES: No clubbing, cyanosis, or edema. SKIN: Normal; no rash; no jaundice. IP TECHNOLOGY TRANSACTIONS ATTORNEY: No focal deficits; alert and oriented times three. (Carly Estevez) Assessment and Plan Plan ASSESSMENT: - Acute Pancreatitis, suspected GS. S/P Cholecystectomy (11/16/16)- LFTs at that time were T. Bilirubin 1.0, AST 47, ALT 29, Alk Phosph 52. Had sudden onset of abdominal pain with associated bloating, n/v yesterday morning. Came to ER, found to have elevated LFTs at T. Bili 2.6, AST 949, ALT 633, Alk Phosph 161, Lipase 15,347. Abdomen/Pelvis CT (11/21/16) ----> 1. Status post interval cholecystectomy with mild increased density in the garett hepatis most characteristic of postsurgical change. 2. Mild inflammatory change and fluid surrounding the second and third portions of the duodenum which is nonspecific but likely secondary to postsurgical change as well. 3. Moderate diverticulosis. 4. Mild hepatic steatosis. His LFTs this morning have improved with T. Bili 1.2, AST 540, ALT 526, Alk Phosph 161, Lipase 6104, but he continues to have abdominal pain. No prior episodes of pancreatitis. Drinks 3 alcoholic beverages per day. NPO. IVF. Zosyn. MRCP pending. No clear obstruction on CT, but labs consistent with CBD stone, ? passed. Will await MRCP- if biliary obstruction , will need ERCP. - Elevated LFTs, secondary to above. MRCP pending. T. Bili 1.2, AST 540, ALT 526, Alk Phosph 161 - Leukocytosis, mild. WBC 12.9----> 8.5. - Recent cholecystitis, s/p lap. yesi (11/16/16). States he was doing well without pain up until yesterday am. - Hypothyroidism, Hyperlipidemia per attending. PLAN: - NPO - IVF - Zosyn - MRCP - CBC, LFT in am - Supportive care - Further recommendations to follow based on results of above - Pt seen and examined by Dr. Russo and myself and this note is written on his behalf ADDENDUM: No filling defects appreciated on MRCP. MRCP (11/22/16) with common bile duct measures 6-7 mm without filling defects. The liver is inhomogeneously fatty. Okay for clear liquids. Rpt. LFTs in am. (Carly Estevez) Physician Comments seen, examined agree with above no indication of cbd stone at this point we will monitor does admit to etoh use-3 shots/night continue current management (Claire Russo MD) Carly Estevez Nov 22, 2016 09:42 Claire Russo MD Nov 22, 2016 21:27
[2016-11-22 12:00] VITALS: BP 150/82; PULSE 54; RESP 16; TEMP 96; O2SAT 94
--- NOTE | 2016-11-22 12:35 | HHI.HP ---
HPI Service General Surgery Primary Care Physician Jay Medellin MD Admission Diagnosis worsening hepatitis/pancreatitis/postop cholecystectomy Chief Complaint: Abdominal pain History of Present Illness Mr. Acharya underwent lap cholecystectomy for gangrenous cholecystitis on and was doing well postoperatively, tolerating diet, etc, until two days ago when he developed upper and mid abdominal pain associated with nausea and multiple episodes of emesis. He was evaluated in the ED and noted to have elevated LFTs and lipase of 15,000. CT abdomen and pelvis showed postoperative changes but otherwise was essentially unremarkable. Review of Systems Constitutional: DENIES: Fever, Chills Eyes: DENIES: Eye inflammation, Eye pain Respiratory: DENIES: Cough Cardiovascular: DENIES: Chest pain, Palpitations Gastrointestinal: COMPLAINS OF: Abdominal pain, Nausea, Vomiting Musculoskeletal: DENIES: Muscle aches, Stiffness Integumentary: DENIES: Pruritus, Rash Neurologic: DENIES: Localized weakness, Seizures Past Family Social History Past Medical History Hypothyroidism Recent cholecystitis Past Surgical History Tonsillectomy Circumcision Laparoscopic cholecystectomy 11/16/16 Reported Medications Reported Meds & Active Scripts Active Reported Synthroid (Levothyroxine Sodium) 137 Mcg Tab 137 Mcg PO DAILY Allergies: Coded Allergies: Codeine (Verified Allergy, Unknown, RASH, 11/21/16) Active Ordered Medications Current Medications Medications (Trade) Dose Ordered Sig/Hemal Route Start Time Stop Time Status Last Admin (NS 1000 ml Inj) 1,000 ml @ 125 mls/hr Q8H IV 11/22/16 00:20 11/22/16 11:26 (NS Flush) 2 ml UNSCH PRN IV FLUSH 11/22/16 00:30 Sodium Chloride 2 ml 2 ml BID IV FLUSH 11/22/16 09:00 11/22/16 00:48 (Zosyn 4.5 Gm Premix) 100 ml @ 200 mls/hr Q6HR IV 11/22/16 00:30 11/22/16 11:26 (Zofran Inj) 4 mg Q6H PRN IV 11/22/16 00:30 11/22/16 08:00 (Dilaudid Pf Inj) 0.5 mg Q3H PRN IV PUSH 11/22/16 00:30 11/22/16 11:26 Family History Noncontributory Social History Occasional alcohol use. No tobacco or drug use. He is present with his . Physical Exam Vital Signs Vital Signs Date Time Temp Pulse Resp B/P Pulse Ox O2 Delivery O2 Flow Rate FiO2 11/22/16 12:00 96.0 54 16 150/82 94 11/22/16 08:00 96.5 55 16 151/77 94 11/22/16 02:28 96.2 59 18 151/77 96 11/22/16 01:02 79 16 140/78 Room Air 11/21/16 23:30 74 16 138/82 100 Room Air 11/21/16 21:29 98.4 65 18 162/85 96 Physical Exam GENERAL: Awake and alert. No acute distress. Cooperative. HEAD: Normocephalic. Atraumatic. EYES: Pupils equal round and reactive to light bilaterally. No scleral icterus. CHEST: Breathing is nonlabored. No respiratory distress. CARDIOVASCULAR: Regular rate and rhythm. ABDOMEN: Port site incisions healing well. Moderate distention. Soft. Moderate tenderness to palpation in the upper midabdomen. EXTREMITIES: No cyanosis or edema. SKIN: Warm, dry, nonjaundiced. Laboratory Laboratory Tests Test 11/21/16 11/22/16 22:40 06:20 White Blood Count 12.9 8.5 Red Blood Count 5.11 4.70 Hemoglobin 15.2 14.5 Hematocrit 46.1 42.1 Mean Corpuscular Volume 90.2 89.7 Mean Corpuscular Hemoglobin 29.8 30.8 Mean Corpuscular Hemoglobin 33.0 34.3 Concent Red Cell Distribution Width 12.3 12.9 Platelet Count 291 243 Mean Platelet Volume 8.5 8.6 Neutrophils (%) (Auto) 87.6 79.6 Lymphocytes (%) (Auto) 6.0 13.1 Monocytes (%) (Auto) 3.7 6.3 Eosinophils (%) (Auto) 0.2 0.7 Basophils (%) (Auto) 2.5 0.3 Neutrophils # (Auto) 11.3 6.8 Lymphocytes # (Auto) 0.8 1.1 Monocytes # (Auto) 0.5 0.5 Eosinophils # (Auto) 0.0 0.1 Basophils # (Auto) 0.3 0.0 CBC Comment DIFF FINAL DIFF FINAL Differential Comment Urine Color TAINA Urine Turbidity CLEAR Urine pH 5.5 Urine Specific [place] 1.017 Urine Protein NEG Urine Glucose (UA) 250 Urine Ketones NEG Urine Occult Blood TRACE Urine Nitrite NEG Urine Bilirubin NEG Urine Leukocyte Esterase NEG Urine RBC 0-3 Urine WBC 0-2 Urine Squamous Epithelial 0-5 Cells Microscopic Urinalysis Comment CULT NOT INDICATED Sodium Level 140 141 Potassium Level 4.0 3.9 Chloride Level 103 106 Carbon Dioxide Level 29.6 25.1 Anion Gap 7 10 Blood Urea Nitrogen 10 9 Creatinine 0.89 0.85 Estimat Glomerular Filtration 84 88 Rate Random Glucose 137 120 Calcium Level 9.4 8.3 Total Bilirubin 2.6 1.2 Aspartate Amino Transf 949 540 (AST/SGOT) Alanine Aminotransferase 633 526 (ALT/SGPT) Alkaline Phosphatase 189 161 Total Protein 7.5 6.5 Albumin 3.7 3.2 Lipase 36761 6104 Result Diagram: 11/22/16 0620 11/22/16 0620 Imaging Last Impressions Abdomen/Pelvis CT 11/21/162204 Signed Impressions: Service Date/Time: Monday, November 21, 2016 23:26 - CONCLUSION: 1. Status post interval cholecystectomy with mild increased density in the garett hepatis most characteristic of postsurgical change. 2. Mild inflammatory change and fluid surrounding the second and third portions of the duodenum which is nonspecific but likely secondary to postsurgical change as well. 3. Moderate diverticulosis. 4. Mild hepatic steatosis. Sharad Crow MD Assessment and Plan Assessment and Plan The patient is a 75-year-old male status post laparoscopic cholecystectomy on presents with abdominal pain, nausea, vomiting associated with elevated LFTs and elevated lipase. He most likely postoperatively had a gallstone into the common bile duct causing choledocholithiasis and gallstone pancreatitis. MRCP was ordered by me and the report is pending. Labs this morning have improved somewhat. If MRCP is negative for common bile duct stone will start clear liquids. Appreciate GI evaluation. Mark Carranza MD Nov 22, 2016 12:35
[2016-11-22] MEDS: SIMETHICONE 80 MG CHEWABLE TAB CHEW PRN ×2 (12:52→16:36)
--- NOTE | 2016-11-22 13:33 | RADRPT ---
EXAM DATE/TIME: 11/22/2016 08:42 [facility] COMPARISON: CT ABDOMEN & PELVIS W CONTRAST, November 21, 2016, 23:26. INDICATIONS : Abdominal pain. MEDICAL HISTORY : None. SURGICAL HISTORY : Cholecystectomy. Tonsillectomy. ENCOUNTER: Initial ACUITY: 2 day PAIN SCORE: 5/10 LOCATION: Abdomen TECHNIQUE: Multiplanar, multisequence magnetic resonance imaging of the abdomen was performed. High-resolution 3D dataset was utilized to reconstruct maximum-intensity projection (MIP) images. FINDINGS: Common bile duct measures 6-7 mm without filling defects. The liver is inhomogeneously fatty. CONCLUSION: Inhomogeneously fatty infiltrated liver. Yehuda King MD on November 22, 2016 at 13:27 Board Certified Radiologist. This report was verified electronically.
[2016-11-22 16:00] VITALS: BP 130/78; PULSE 56; RESP 16; TEMP 96.9; O2SAT 94
[2016-11-22 20:32] VITALS: BP 160/79; PULSE 62; RESP 16; TEMP 98.6; O2SAT 96
[2016-11-23] VITALS: BP 137/70; PULSE 65; RESP 16; TEMP 99.3; O2SAT 93
[2016-11-23] MEDS: SODIUM CHLOR 0.9% 1000 ML INJ 1,000 ML IV SCH ×2 (00:20→09:10)
[2016-11-23] MEDS: HYDROmorphone HCL PF 1 MG/ML VIAL IV PUSH PRN ×4 (03:13→12:00)
[2016-11-23] MEDS ORDERED: LEVO-86 PO (03:28)
[2016-11-23 04:00] VITALS: BP 169/81; PULSE 88; RESP 18; TEMP 99.5; O2SAT 93
[2016-11-23] MEDS: PIPERACIL-TAZO 4.5 GM PREMIX 100 ML IV SCH ×2 (04:34→11:58)
[2016-11-23] MEDS ORDERED: LEVOTHYROXINE SODIUM 112 MCG TAB PO ONE (05:00)
[2016-11-23] MEDS ORDERED: LEVOTHYROXINE SODIUM 25 MCG TAB PO ONE (05:00)
[2016-11-23 06:03] LABS: INDIRECT BILIRUBIN 0.9 MG/DL (0.0-0.8); TOTAL BILIRUBIN ADULT 1.1 MG/DL (0.2-1.0)
[2016-11-23 08:00] VITALS: BP 148/87; PULSE 61; RESP 17; TEMP 99.1; O2SAT 92
[2016-11-23] MEDS: SODIUM CHLORIDE 0.9% FLUSH 10 ML FLUSH IV FLUSH SCH (09:00)
[2016-11-23] MEDS: SIMETHICONE 80 MG CHEWABLE TAB CHEW PRN (09:09)
[2016-11-23 12:00] VITALS: BP 145/77; PULSE 58; RESP 16; TEMP 99; O2SAT 93
[2016-11-23] MEDS ORDERED: OXYC1TAB63 PO (14:41)
--- NOTE | 2016-11-23 14:44 | HHI.DS ---
Discharge Summary Admission Date Nov 22, 2016 at 13:01 Admitting Diagnosis worsening hepatitis/pancreatitis/postop cholecystectomy Brief History Mr. Acharya underwent lap cholecystectomy for gangrenous cholecystitis on and was doing well postoperatively, tolerating diet, etc, until two days ago when he developed upper and mid abdominal pain associated with nausea and multiple episodes of emesis. He was evaluated in the ED and noted to have elevated LFTs and lipase of 15,000. CT abdomen and pelvis showed postoperative changes but otherwise was essentially unremarkable. CBC/BMP: 11/22/16 0620 11/22/16 0620 Significant Findings Laboratory Tests Test 11/21/16 11/22/16 11/23/16 22:40 06:20 04:05 White Blood Count 12.9 TH/MM3 (4.0-11.0) Neutrophils (%) (Auto) 87.6 % 79.6 % (16.0-70.0) (16.0-70.0) Lymphocytes (%) (Auto) 6.0 % (9.0-44.0) Basophils (%) (Auto) 2.5 % (0.0-2.0) Neutrophils # (Auto) 11.3 TH/MM3 (1.8-7.7) Lymphocytes # (Auto) 0.8 TH/MM3 (1.0-4.8) Basophils # (Auto) 0.3 TH/MM3 (0-0.2) Urine Color TAINA (YELLW/STRAW) Urine Glucose (UA) 250 mg/dL (NEG) Urine Occult Blood TRACE (NEG) Estimat Glomerular Filtration 84 ML/MIN (>89) 88 ML/MIN (>89) Rate Random Glucose 137 MG/DL 120 MG/DL (74-106) (74-106) Total Bilirubin 2.6 MG/DL 1.2 MG/DL 1.1 MG/DL (0.2-1.0) (0.2-1.0) (0.2-1.0) Aspartate Amino Transf 949 U/L (15-37) 540 U/L (15-37) 148 U/L (15-37) (AST/SGOT) Alanine Aminotransferase 633 U/L (12-78) 526 U/L (12-78) 322 U/L (12-78) (ALT/SGPT) Alkaline Phosphatase 189 U/L 161 U/L 135 U/L (45-117) (45-117) (45-117) Lipase 55203 U/L 6104 U/L 615 U/L (73-393) (73-393) (73-393) Calcium Level 8.3 MG/DL (8.5-10.1) Albumin 3.2 GM/DL 3.3 GM/DL (3.4-5.0) (3.4-5.0) Indirect Bilirubin 0.9 MG/DL (0.0-0.8) PE at Discharge NAD Abd: soft, mild diffuse ttp Hospital Course Pain and nausea improved over steadily. He underwent MRCP which was negative for CBD stone. LFTs and lipase continued to improve. Pt Condition on Discharge: Good Discharge Disposition: Discharge Home Discharge Instructions DIET: Follow Instructions for: Heart Healthy Diet Activities you can perform: Regular-No Restrictions New Medications: Oxycodone-Acetaminophen (Oxycodone-Acetaminophen) 5-325 mg Tab 1-2 TAB PO Q4H PRN PAIN #30 Ref 0 TAB Continued Medications: Levothyroxine (Synthroid) 137 Mcg Tab 137 MCG PO DAILY Thyroid #30 Ref 0 TAB Mark Carranza MD Nov 23, 2016 14:44
--- NOTE | 2016-11-23 15:06 | HHI.GIFU ---
Subjective Remarks Resting in bed. Still with some abdominal bloating/discomfort, but improving. No n/v. Tolerated heart healthy diet. States he is going home later today. ( Carly Estevez) Objective Vitals I&O Vital Signs Date Time Temp Pulse Resp B/P Pulse Ox O2 Delivery O2 Flow Rate FiO2 11/23/16 12:00 99.0 58 16 145/77 93 11/23/16 08:00 99.1 61 17 148/87 92 11/23/16 04:00 99.5 88 18 169/81 93 11/23/16 00:00 99.3 65 16 137/70 93 11/22/16 20:32 98.6 62 16 160/79 96 11/22/16 16:00 96.9 56 16 130/78 94 I/O 11/22/16 11/22/16 11/22/16 11/23/16 11/23/16 11/23/16 06:59 14:59 22:59 06:59 14:59 22:59 Intake Total 338 ml 659 ml 1012 ml 721 ml Balance 338 ml 659 ml 1012 ml 721 ml Intake Oral 0 ml IV Total 338 ml 659 ml 1012 ml 721 ml # Voids 1 2 0 3 # Bowel Movements 0 Laboratory Laboratory Tests Test 11/23/16 04:05 Total Bilirubin 1.1 Direct Bilirubin 0.2 Indirect Bilirubin 0.9 Aspartate Amino Transf 148 (AST/SGOT) Alanine Aminotransferase 322 (ALT/SGPT) Alkaline Phosphatase 135 Total Protein 6.4 Albumin 3.3 Lipase 615 Imaging Last Impressions Cholangiopancreatography MRI 11/22/16 0000 Signed Impressions: Service Date/Time: Tuesday, November 22, 2016 08:42 - CONCLUSION: Inhomogeneously fatty infiltrated liver. Yehuda King MD Abdomen/Pelvis CT 11/21/16 2205 Signed Impressions: Service Date/Time: Monday, November 21, 2016 23:26 - CONCLUSION: 1. Status post interval cholecystectomy with mild increased density in the garett hepatis most characteristic of postsurgical change. 2. Mild inflammatory change and fluid surrounding the second and third portions of the duodenum which is nonspecific but likely secondary to postsurgical change as well. 3. Moderate diverticulosis. 4. Mild hepatic steatosis. Sharad Crow MD Physical Exam HEENT: Normocephalic; atraumatic; no jaundice. CHEST: CTA CARDIAC: RRR ABDOMEN: Soft, mildly bloated, mild diffuse tenderness; no hepatosplenomegaly; bowel sounds are present in all four quadrants. EXTREMITIES: No clubbing, cyanosis, or edema. SKIN: Normal; no rash; no jaundice. PASTRYCOOK'S ASSISTANT: No focal deficits; alert and oriented times three. (Carly Estevez) Assessment and Plan Plan ASSESSMENT: - Acute Pancreatitis, suspected GS. S/P Cholecystectomy (11/16/16)- LFTs at that time were T. Bilirubin 1.0, AST 47, ALT 29, Alk Phosph 52. Had sudden onset of abdominal pain with associated bloating, n/v yesterday morning. Came to ER, found to have elevated LFTs at T. Bili 2.6, AST 949, ALT 633, Alk Phosph 161, Lipase 15,347. Abdomen/Pelvis CT (11/21/16) ----> 1. Status post interval cholecystectomy with mild increased density in the garett hepatis most characteristic of postsurgical change. 2. Mild inflammatory change and fluid surrounding the second and third portions of the duodenum which is nonspecific but likely secondary to postsurgical change as well. 3. Moderate diverticulosis. 4. Mild hepatic steatosis. MRCP (11/22/16)-----> Inhomogeneously fatty infiltrated liver. No prior episodes of pancreatitis. Drinks 3 alcoholic beverages per day. Tolerated heart healthy diet. - Elevated LFTs, secondary to above. MRCP with no indication of cbd. T. Bili 1.1, AST 148, ALT 322, Alk Phosph 135 - Leukocytosis, mild. IMPROVED - Recent cholecystitis, s/p lap. yesi (11/16/16). States he was doing well without pain up until yesterday am. - Hypothyroidism, Hyperlipidemia per attending. PLAN: - Heart healthy diet (Low fat) - Avoid ETOH - Supportive care - Further recommendations to follow based on results of above - Pt seen and examined by Dr. Russo and myself and this note is written on his behalf (Carly Estevez) Physician Comments seen, examined agree with above fu office ok to dc home from [facility] low fat diet, n o etoh (Claire Russo MD) Carly Estevez Nov 23, 2016 15:06 Claire Russo MD Nov 23, 2016 15:34
== END 2016-11-23 16:03 | disposition home or self-care (01) | DRG 440 ==
LOC: PHED 20:54 → PHEDA 11-22 00:37 → INTOOBSV 11-22 00:37 → N07A 11-22 02:26 → OBSVTOIN 11-22 13:01
PROVIDERS: ADMIT Surgery; ATTEND Surgery
DX: K85.90 Acute pancreatitis without necrosis or infection, unspecified (principal); E03.9 Hypothyroidism, unspecified; E78.5 Hyperlipidemia, unspecified
CPT/HCPCS: 74177; 74181; 76377; 80053; 80076; 81001; 82948; 83690; 85025; 96361; 96374; 96375; J1170; J2270; J2405; J2543; J7030; J7040; Q9967